=== PATIENT | female | born 1950 | race Caucasian/White ===

== ENCOUNTER 2021-10-09 17:19 | Inpatient (IN) ==
[2021-10-09] MEDS ORDERED: SODIUM CHLORIDE 0.9% 500 ML IV STA (18:59)
[2021-10-09] MEDS ORDERED: ONDANSETRON 4 MG/2 ML VIAL IV STA (18:59)
[2021-10-09] MEDS ORDERED: HYDROmorphone 2 MG/1 ML VIAL IV STA (18:59)
[2021-10-09] MEDS ORDERED: ALUM/MAG/SIMETH/LIDO VISC 1:1 30 ML BOTTLE PO STA (18:59)
[2021-10-09] MEDS ORDERED: PANTOPRAZOLE 40 MG VIAL IV STA (18:59)
[2021-10-09 19:15] LABS: Basophils # 0.1 10*3/uL (0.0-0.2); Basophils % 0.5 % (0.0-0.8); Eosinophils # 0.1 10*3/uL (0.0-0.87); Eosinophils % 0.6 % (0.00-10.9); Hematocrit 46.2 VOL% (35.7-47.0); Hemoglobin 16.2 GM/DL (12.0-16.0); Immature Granulocytes % 0.4 %; Immature Granulocytes Absolute 0.05 #; Lymphocytes # 1.2 10*3/uL (1.4-4.0); Lymphocytes % 9.1 % (21.3-54.2); Mean Corpuscular HGB Conc 35.1 GM/DL (32-36); Mean Corpuscular Volume 88.5 FL (87-102); Mean Platelet Volume 10.4 FL (9.6-12.0); Monocytes % 9.3 % (1.7-12.7); Neutrophils % 80.1 % (38.7-73.9); Platelet Count 276 T/CUMM (130-400); Red Blood Count 5.22 MC/CUMM (3.8-5.5); Red Cell Distribution Width 12.7 % (9.3-17.3); White Blood Count 13.2 T/CUMM (4-12)
[2021-10-09 19:36] LABS: Bilirubin,Total 0.8 MG/DL (0.20-1.00); Calcium 10.3 MG/DL (8.5-10.1); Osmolality,Calculated 260.6 MOS/KG (273-304); Potassium 3.7 MMOL/L (3.5-5.1); Total Protein 7.1 G/DL (6.4-8.2)
[2021-10-09 20:07] LABS: Mucus,Urine Occasional /LPF (Occasional); RBC,Urine 36 /HPF (0-4); Squamous Epithelial Cell,Urine Occasional /HPF (0-10)
[2021-10-09 20:10] LABS: Bilirubin,Urine Negative (Negative); Blood, Urine Small mg/dL (Negative); Glucose,Urine (UA) Negative (Negative); Ketones,Urine Negative (Negative); Nitrite,Urine Negative (Negative); Protein,Urine Negative; Urine Appearance Clear (Clear); Urine Color Light Yellow (Yellow); Urine Specific Gravity 1.015 (1.001-1.035); Urine Urobilinogen < 2.0 EU/DL (<2.0)
[2021-10-09] MEDS ORDERED: ONDANSETRON 4 MG/2 ML VIAL IV PRN (21:49)
[2021-10-09] MEDS ORDERED: GLUCAGON 1 MG VIAL IM PRN (21:49)
[2021-10-09] MEDS ORDERED: ACETAMINOPHEN 325 MG TABLET PO PRN (21:49)
[2021-10-09] MEDS ORDERED: LACTULOSE 20 GM/30 ML UDCUP PO PRN (21:49)
[2021-10-09] MEDS ORDERED: DEXTROSE 10% 250 ML BAG IV PRN (21:56)
[2021-10-09] MEDS ORDERED: SULFAMETHOX/TRIMETHOPRIM 800-160 MG TABLET ONE (22:16)
[2021-10-09] MEDS: SODIUM CHLORIDE 0.9% 1,000 ML IV SCH (22:22)
[2021-10-09] MEDS ORDERED: SULFAMETHOX/TRIMETHOPRIM 400-80 MG TABLET PO SCH (22:30)
[2021-10-09] MEDS ORDERED: SULFAMETHOX/TRIMETHOPRIM 800-160 MG TABLET PO SCH (22:30)
[2021-10-09] MEDS: BREZTRI AEROSPHERE INH SCH (23:10)
[2021-10-09] MEDS: APIXABAN 5 MG TABLET PO SCH (23:10)
[2021-10-10] MEDS ORDERED: ALBUTEROL 2.5 MG/3 ML NEB RESP TX PRN (01:00)
[2021-10-10] MEDS ORDERED: INFLUENZA VIRUS VACCINE 0.5 ML SYRINGE IM ONE (01:39)
[2021-10-10 07:41] LABS: Basophils # 0.1 10*3/uL (0.0-0.2); Basophils % 1.1 % (0.0-0.8); Eosinophils # 0.1 10*3/uL (0.0-0.87); Hematocrit 43.5 VOL% (35.7-47.0); Hemoglobin 14.8 GM/DL (12.0-16.0); Immature Granulocytes % 0.3 %; Immature Granulocytes Absolute 0.02 #; Lymphocytes # 1.8 10*3/uL (1.4-4.0); Lymphocytes % 24.9 % (21.3-54.2); Mean Corpuscular Volume 89.5 FL (87-102); Mean Platelet Volume 9.6 FL (9.6-12.0); Monocytes % 12.2 % (1.7-12.7); Neutrophils % 59.5 % (38.7-73.9); Platelet Count 228 T/CUMM (130-400); Red Blood Count 4.86 MC/CUMM (3.8-5.5); White Blood Count 7.1 T/CUMM (4-12)
[2021-10-10 08:07] LABS: Albumin 3.3 G/DL (3.4-5.0); Bilirubin,Total 0.6 MG/DL (0.20-1.00); Calcium 9.5 MG/DL (8.5-10.1); Osmolality,Calculated 270.5 MOS/KG (273-304); Potassium 3.5 MMOL/L (3.5-5.1); Total Protein 6.6 G/DL (6.4-8.2)
[2021-10-10] MEDS ORDERED: ERGOCALCIFEROL 50,000 UNIT CAPSULE PO SCH (09:00)
[2021-10-10] MEDS ORDERED: FUROSEMIDE 20 MG TABLET PO SCH (09:00)
[2021-10-10] MEDS ORDERED: ROSUVASTATIN 20 MG TABLET PO SCH ×2 (09:00→21:00)
[2021-10-10] MEDS ORDERED: GABAPENTIN 100 MG CAPSULE PO SCH ×2 (09:00→21:00)
[2021-10-10] MEDS ORDERED: LEVOFLOXACIN 250 MG TABLET PO SCH (09:00)
[2021-10-10] MEDS: POLYETHYLENE GLYCOL POWDER 17 GM PACK PO SCH (09:24)
[2021-10-10] MEDS: traZODone 50 MG TABLET PO SCH (09:24)
[2021-10-10] MEDS: DILTIAZEM 30 MG TABLET PO SCH ×2 (09:25→21:14)
[2021-10-10] MEDS: NEBIVOLOL 5 MG TABLET PO SCH (09:25)
[2021-10-10] MEDS: CYANOCOBALAMIN 500 MCG TABLET PO SCH (09:26)
[2021-10-10] MEDS: APIXABAN 5 MG TABLET PO SCH ×2 (09:27→21:14)
[2021-10-10] MEDS: INSULIN REGULAR 100 UNIT/ML SUBCUT SCH ×4 (09:28→21:13)
[2021-10-10] MEDS: INSULIN GLARGINE 100 UNIT/ML SUBCUT SCH (09:28)
[2021-10-10] MEDS: LINACLOTIDE 145 MCG CAPSULE PO SCH (09:36)
[2021-10-10] MEDS: VITAMIN A 10000 UNIT PO SCH (10:17)
[2021-10-10] MEDS: DOCUSATE SODIUM 100 MG CAPSULE PO SCH ×2 (10:17→21:13)
[2021-10-10] MEDS: BISACODYL 5 MG TABLET PO SCH (10:17)
[2021-10-10] MEDS: MONTELUKAST 10 MG TABLET PO SCH (10:17)
[2021-10-10] MEDS: SODIUM CHLORIDE 0.9% 1,000 ML IV SCH (10:20)
[2021-10-10] MEDS: BREZTRI AEROSPHERE INH SCH (10:21)
[2021-10-10] MEDS ORDERED: FLUCONAZOLE 150 MG TABLET PO ONE (11:00)
[2021-10-10] MEDS ORDERED: SODIUM CHLORIDE 0.45% 1,000 ML IV SCH (11:00)
[2021-10-10] MEDS: cefTRIAXone 1,000 MG in SODIUM CHLORIDE 0.9% 100 ML IV SCH (13:12)
[2021-10-10] MEDS: ASCORBIC ACID 500 MG TABLET PO SCH (13:13)
[2021-10-10 14:16] LABS: Calcium 9.3 MG/DL (8.5-10.1); Osmolality,Calculated 273.7 MOS/KG (273-304); Potassium 3.1 MMOL/L (3.5-5.1)
[2021-10-10] MEDS ORDERED: MELATONIN 3 MG TABLET PO SCH (21:00)
[2021-10-10] MEDS: BUDESONIDE/FORMOTEROL 160-4.5 INHALER 6 GM INH SCH (21:15)
[2021-10-11] MEDS: BREZTRI AEROSPHERE INH SCH ×2 (00:24→09:50)
[2021-10-11 06:32] LABS: Basophils # 0.1 10*3/uL (0.0-0.2); Basophils % 0.7 % (0.0-0.8); Eosinophils # 0.1 10*3/uL (0.0-0.87); Eosinophils % 1.3 % (0.00-10.9); Hematocrit 40.2 VOL% (35.7-47.0); Hemoglobin 13.8 GM/DL (12.0-16.0); Immature Granulocytes % 0.6 %; Immature Granulocytes Absolute 0.06 #; Lymphocytes # 1.9 10*3/uL (1.4-4.0); Lymphocytes % 18.7 % (21.3-54.2); Mean Corpuscular HGB Conc 34.3 GM/DL (32-36); Mean Corpuscular Volume 89.7 FL (87-102); Mean Platelet Volume 10.1 FL (9.6-12.0); Monocytes % 10.4 % (1.7-12.7); Neutrophils % 68.3 % (38.7-73.9); Platelet Count 213 T/CUMM (130-400); Red Blood Count 4.48 MC/CUMM (3.8-5.5); Red Cell Distribution Width 12.8 % (9.3-17.3); White Blood Count 10.1 T/CUMM (4-12)
[2021-10-11 06:51] LABS: Calcium 9.6 MG/DL (8.5-10.1); Osmolality,Calculated 261.9 MOS/KG (273-304)
[2021-10-11] MEDS ORDERED: POTASSIUM CHLORIDE 20 MEQ TABLET PO ONE ×3 (07:30→11:07)
[2021-10-11] MEDS: INSULIN REGULAR 100 UNIT/ML SUBCUT SCH ×3 (08:49→16:59)
[2021-10-11] MEDS: DOCUSATE SODIUM 100 MG CAPSULE PO SCH (08:50)
[2021-10-11] MEDS: NEBIVOLOL 5 MG TABLET PO SCH (08:50)
[2021-10-11] MEDS: DILTIAZEM 30 MG TABLET PO SCH (08:50)
[2021-10-11] MEDS: traZODone 50 MG TABLET PO SCH (08:52)
[2021-10-11] MEDS: APIXABAN 5 MG TABLET PO SCH (08:52)
[2021-10-11] MEDS: BISACODYL 5 MG TABLET PO SCH (08:52)
[2021-10-11] MEDS: MONTELUKAST 10 MG TABLET PO SCH (08:53)
[2021-10-11] MEDS: LINACLOTIDE 145 MCG CAPSULE PO SCH (08:53)
[2021-10-11] MEDS: INSULIN GLARGINE 100 UNIT/ML SUBCUT SCH (08:53)
[2021-10-11] MEDS: POLYETHYLENE GLYCOL POWDER 17 GM PACK PO SCH (08:53)
[2021-10-11] MEDS: CYANOCOBALAMIN 500 MCG TABLET PO SCH (08:53)
[2021-10-11] MEDS: VITAMIN A 10000 UNIT PO SCH (08:53)
[2021-10-11] MEDS: BUDESONIDE/FORMOTEROL 160-4.5 INHALER 6 GM INH SCH (08:53)
[2021-10-11] MEDS: ASCORBIC ACID 500 MG TABLET PO SCH (08:54)
[2021-10-11] MEDS ORDERED: POTASSIUM CHLORIDE 10 MEQ TABLET PO SCH (09:00)
[2021-10-11] MEDS: cefTRIAXone 1,000 MG in SODIUM CHLORIDE 0.9% 100 ML IV SCH (09:50)
[2021-10-11 11:51] VITALS: BP 113/49
[2021-10-17] MEDS ORDERED: CHOLECALCIFEROL 1,000 UNIT TABLET PO SCH (09:00)
[2021-10-17] MEDS ORDERED: ERGOCALCIFEROL 50,000 UNIT CAPSULE PO SCH (09:00)
== END 2021-10-11 17:29 | disposition home or self-care (01) | DRG 641 ==
LOC: N.ED 17:19 → N.EDINP 17:19 → N.3E 23:45 → SUATTDRO 10-10 07:08
PROVIDERS: ADMIT Internal Medicine; ATTEND Internal Medicine